=== PATIENT | female | born 1990 | race Caucasian/White ===

== ENCOUNTER 2018-01-09 19:09 | Inpatient (IN) | payer BC, MEDICAID, OTHER ==
[~2018-01-09] VITALS: Ht 147.3 cm; Wt 40.8 kg
[2018-01-09 20:48] LABS: CLARITY URINE CLEAR (CLEAR); COLOR URINE YELLOW (YELLOW); KETONES URINE NEGATIVE (NEGATIVE); LEUKOCYTE ESTERASE URINE NEGATIVE (NEGATIVE); NITRITE URINE NEGATIVE (NEGATIVE); OCCULT BLOOD URINE NEGATIVE (NEGATIVE); PROTEIN URINE NEGATIVE (NEGATIVE); SPECIFIC GRAVITY URINE 1.011 (1.005-1.030)
[2018-01-09] MEDS ORDERED: MORPHINE SULFATE 4 MG/ML CPJ (NOT FOR IM USE) IV STA (22:29)
[2018-01-09] MEDS ORDERED: ONDANSETRON HCL 4MG/2ML INJ IV STA (22:29)
[2018-01-09] MEDS ORDERED: SODIUM CHLORIDE 0.9% 1,000 ML IV ONE (22:29)
[2018-01-09 23:52] LABS: HCG SCREEN NEGATIVE
[2018-01-09 23:54] LABS: CHLORIDE 107 mEq/L (98-107)
[2018-01-09 23:55] LABS: BASOPHILS % 0.6 % (0.0-2.0); EOSINOPHILS % 0.7 % (0.0-5.0); HEMATOCRIT. 46.1 % (36.0-48.0); HEMOGLOBIN. 15.5 g/dL (12.0-16.0); LYMPHOCYTES % 16.6 % (20.0-50.0); MEAN CORPUSCULAR VOLUME 95.1 fL (81.0-99.0); MEAN PLATELET VOLUME 12.6 fl (7.4-10.4); MONOCYTES % 6.9 % (2.0-8.0); NEUTROPHILS % 75.2 % (40.0-76.0); PLATELET 110 x1000/uL (130-400); RED BLOOD CELL COUNT 4.85 mill/uL (4.2-5.4); RED CELL DISTRIBUTION WIDTH 12.6 % (11.6-14.6)
[2018-01-10] MEDS ORDERED: ASPIRIN 81MG TABLET PO ONE (01:15)
[2018-01-10] MEDS ORDERED: MORPHINE SULFATE 4 MG/ML CPJ (NOT FOR IM USE) IV ONE (01:30)
[2018-01-10] MEDS ORDERED: SODIUM CHLORIDE 0.9% 1,000 ML IV ONE (02:15)
[2018-01-10] MEDS ORDERED: CLONIDINE 0.1MG TABLET PO PRN (09:45)
[2018-01-10] MEDS ORDERED: ACETAMINOPHEN 325MG TABLET PO PRN (09:45)
[2018-01-10] MEDS ORDERED: MAGNESIUM/ALUMINUM HYDROXIDE/SIMETHICONE 30ML UDC PO PRN (09:45)
[2018-01-10] MEDS ORDERED: ACETAMINOPHEN 650MG/20.3ML UDC GT PRN (09:45)
[2018-01-10] MEDS ORDERED: ONDANSETRON HCL 4MG/2ML INJ IV PRN (09:45)
[2018-01-10] MEDS ORDERED: IPRATROPIUM/ALBUTEROL 0.5-3(2.5)MG/3ML NEB INH PRN (09:45)
[2018-01-10] MEDS ORDERED: ACETAMINOPHEN 650MG SUPP PR PRN (09:45)
[2018-01-10] MEDS ORDERED: NA PHOS,M-B/NA PHOS,DI-BA ENEMA 118ML PR PRN (09:45)
[2018-01-10] MEDS: FAMOTIDINE 20MG/2ML VIAL IV SCH (10:10)
[2018-01-10 10:22] VITALS: BP 105/64
[2018-01-10 10:25] LABS: BASOPHILS % 0.4 % (0.0-2.0); EOSINOPHILS % 0.3 % (0.0-5.0); HEMATOCRIT. 40.6 % (36.0-48.0); HEMOGLOBIN. 13.4 g/dL (12.0-16.0); LYMPHOCYTES % 9.9 % (20.0-50.0); MEAN CORPUSCULAR HEMOGLOBIN 31.7 pg (28.0-32.0); MEAN CORPUSCULAR VOLUME 95.6 fL (81.0-99.0); MEAN PLATELET VOLUME 12.5 fl (7.4-10.4); MONOCYTES % 7.1 % (2.0-8.0); NEUTROPHILS % 82.3 % (40.0-76.0); PLATELET 94 x1000/uL (130-400); RED BLOOD CELL COUNT 4.25 mill/uL (4.2-5.4); RED CELL DISTRIBUTION WIDTH 12.8 % (11.6-14.6)
[2018-01-10 10:32] LABS: D-DIMER 0.32 mg/L FEU (<0.50); INR 1.1; PROTHROMBIN TIME 11.1 sec (9.1-11.1)
[2018-01-10 10:42] LABS: CHLORIDE 109 mEq/L (98-107)
[2018-01-10 10:52] LABS: HDL CHOLESTEROL 46 mg/dL (40-59); LDL CHOLESTEROL 44 mg/dL (5-100); T4 FREE 1.31 ng/dL (0.76-1.46)
[2018-01-10] MEDS: SODIUM CHLORIDE 0.45% 1,000 ML IV SCH (11:22)
[2018-01-10 12:00] VITALS: BP 92/47
[2018-01-10 13:10] LABS: CLARITY URINE CLEAR (CLEAR); COLOR URINE YELLOW (YELLOW); KETONES URINE 2+ (NEGATIVE); LEUKOCYTE ESTERASE URINE NEGATIVE (NEGATIVE); NITRITE URINE NEGATIVE (NEGATIVE); OCCULT BLOOD URINE NEGATIVE (NEGATIVE); PROTEIN URINE NEGATIVE (NEGATIVE); SPECIFIC GRAVITY URINE 1.013 (1.005-1.030); UROBILINOGEN URINE 0.2 E.U./dL (0.2-1.0)
[2018-01-10 13:27] LABS: *AMPHETAMINES SCREEN URINE NEGATIVE (NEGATIVE); *BARBITURATES SCREEN URINE NEGATIVE (NEGATIVE); *BENZODIAZEPINES SCREEN URINE NEGATIVE (NEGATIVE); *COCAINE SCREEN URINE NEGATIVE (NEGATIVE)
[2018-01-10 13:28] LABS: CANNABINOID URINE SCREEN NEGATIVE (NEGATIVE); METHADONE URINE SCREEN NEGATIVE (NEGATIVE); PHENCYCLIDINE URINE SCREEN NEGATIVE (NEGATIVE)
[2018-01-10 13:38] LABS: OPIATES URINE SCREEN PRESUMTIVE POSITIVE (NEGATIVE)
[2018-01-10] MEDS: SODIUM CHLORIDE 0.9% INJ 3ML FLUSH IVF SCH ×2 (14:00→21:02)
[2018-01-10 16:00] VITALS: BP 97/62
[2018-01-10 17:31] LABS: CREATINE KINASE 75 IU/L (26-192); CREATINE KINASE MB FRACTION < 1.0 ng/mL (0.5-3.6)
[2018-01-10 20:00] VITALS: BP 102/45
[2018-01-10] MEDS: METOCLOPRAMIDE HCL 10MG/2ML VIAL IV SCH (20:55)
[2018-01-11] VITALS: BP 95/46
[2018-01-11] MEDS: SODIUM CHLORIDE 0.45% 1,000 ML IV SCH (00:42)
[2018-01-11 01:02] LABS: BASOPHILS % 0.4 % (0.0-2.0); EOSINOPHILS % 0.8 % (0.0-5.0); HEMATOCRIT. 39.7 % (36.0-48.0); HEMOGLOBIN. 13.4 g/dL (12.0-16.0); LYMPHOCYTES % 13.4 % (20.0-50.0); MEAN CORPUSCULAR HEMOGLOBIN 32.2 pg (28.0-32.0); MEAN CORPUSCULAR VOLUME 95.5 fL (81.0-99.0); MEAN PLATELET VOLUME 11.9 fl (7.4-10.4); MONOCYTES % 6.2 % (2.0-8.0); NEUTROPHILS % 79.2 % (40.0-76.0); PLATELET 93 x1000/uL (130-400); RED BLOOD CELL COUNT 4.16 mill/uL (4.2-5.4); RED CELL DISTRIBUTION WIDTH 12.6 % (11.6-14.6)
[2018-01-11 01:20] LABS: CHLORIDE 110 mEq/L (98-107)
[2018-01-11 01:33] LABS: CREATINE KINASE 68 IU/L (26-192); HDL CHOLESTEROL 49 mg/dL (40-59); LDL CHOLESTEROL 41 mg/dL (5-100)
[2018-01-11 01:34] LABS: CREATINE KINASE MB FRACTION < 1.0 ng/mL (0.5-3.6)
[2018-01-11] MEDS: METOCLOPRAMIDE HCL 10MG/2ML VIAL IV SCH ×3 (03:03→14:34)
[2018-01-11 04:00] VITALS: BP 98/43
[2018-01-11 08:00] VITALS: BP_SYST 132; BP_SYST 134; BP_SYST 136; BP_DIAS 80; BP_DIAS 84; BP_DIAS 86
[2018-01-11] MEDS: FAMOTIDINE 20MG/2ML VIAL IV SCH (08:04)
[2018-01-11 11:38] VITALS: BP 105/58
[2018-01-11 12:28] LABS: CREATINE KINASE 69 IU/L (26-192); CREATINE KINASE MB FRACTION < 1.0 ng/mL (0.5-3.6)
[2018-01-11] MEDS: SODIUM CHLORIDE 0.9% INJ 3ML FLUSH IVF SCH (14:00)
[2018-01-11 16:00] VITALS: BP 105/58
[2018-01-11 20:28] VITALS: BP 116/66
== END 2018-01-11 21:35 | disposition home or self-care (01) | DRG 249 ==
LOC: ER 19:09 → 8WST 01-10 01:43 → ENRESERV 01-10 08:01
PROVIDERS: ADMIT Family Medicine; ATTEND Family Medicine
DX: E86.0 Dehydration (principal); K52.9 Noninfective gastroenteritis and colitis, unspecified; Q89.3 Situs inversus; I25.10 Atherosclerotic heart disease of native coronary artery without angina pectoris; Z95.1 Presence of aortocoronary bypass graft; Z90.49 Acquired absence of other specified parts of digestive tract; Z98.891 History of uterine scar from previous surgery; Z88.0 Allergy status to penicillin; Z88.8 Allergy status to other drugs, medicaments and biological substances; Z79.899 Other long term (current) drug therapy
CPT/HCPCS: 36415; 71045; 74018; 74176; 76830; 76856; 80061; 80305; 82550; 82553; 83036; 83880; 84439; 84443; 84484; 84703; 85379; 93005; 93306; 96361; 96374; 96375; 96376; 99285; J2270; J2405; J2765; J3490; J7030

== ENCOUNTER 2019-01-13 11:06 | Emergency (ER) | payer OTHER ==
[~2019-01-13] VITALS: Ht 147.3 cm; Wt 47.0 kg
[2019-01-13] MEDS ORDERED: IBUPROFEN 800MG TABLET PO ONE (15:15)
[2019-01-13] MEDS ORDERED: ACETAMINOPHEN 500MG TABLET PO ONE (15:15)
[2019-01-13 15:45] VITALS: BP 109/78
== END 2019-01-13 15:51 | disposition home or self-care (01) ==
LOC: ER 11:06
DX: S40.022A Contusion of left upper arm, initial encounter (principal); I51.9 Heart disease, unspecified; Z88.5 Allergy status to narcotic agent; Z88.0 Allergy status to penicillin; Z91.011 Allergy to milk products; Z98.890 Other specified postprocedural states; Y08.89XA Assault by other specified means, initial encounter; Y93.89 Activity, other specified; Y92.89 Other specified places as the place of occurrence of the external cause
CPT/HCPCS: 81025; 99283